=== PATIENT | female | born 1935 | race Caucasian/White ===

== ENCOUNTER → 2018-05-15 | Outpatient (CLI) | payer OTHER, MEDICARE ==
[~2018-05-15] MED LIST: ASPI81TA28 PO; CHOL1000 PO; HYDR-5688 PO; LEVO25CA2 PO; LISI-726 PO; METO25TA3 PO; PSYL0.524 PO
--- NOTE | 2018-05-15 16:04 | DIAGNOSTIC IMAGING REPORT ---
CHEST 2 VIEWS ROUTINE CLINICAL HISTORY: PAT preoperative evaluation COMPARISON STUDY: No previous studies for comparison. FINDINGS: The bones soft tissues and hemidiaphragms are normal. The cardiomediastinal silhouette is normal. The lungs are clear. The pulmonary vasculature is normal. IMPRESSION: Negative chest. The above report was generated using voice recognition software. It may contain grammatical, syntax or spelling errors. Electronically signed by: Jean Snell M.D. 05/15/2018 4:02 PM Dictated Date/Time: 05/15/2018 4:02 PM
[2018-05-15 16:10] LABS: BASO % 0.2 %; BASO ABS # 0.02 K/uL (0-0.2); EOS % 3.1 %; EOS ABS # 0.27 K/uL (0-0.5); HEMATOCRIT 35.8 % (37-47); HEMOGLOBIN 11.7 g/dL (12.0-16.0); IG# 0.02 K/uL (0.00-0.02); LYMPH % 41.2 %; LYMPH ABS # 3.63 K/uL (1.2-3.4); MEAN CORPUSCULAR HEMOGLOBIN 27.8 pg (25-34); MEAN CORPUSCULAR HGB CONC 32.7 g/dl (32-36); MEAN PLATELET VOLUME 8.8 fL (7.4-10.4); MONO % 7.3 %; MONO ABS # 0.64 K/uL (0.11-0.59); NEUT ABS # 4.23 K/uL (1.4-6.5); PLATELET COUNT 328 K/uL (130-400); RED CELL DISTRIBUTION WIDTH CV 14.2 % (11.5-14.5); RED CELL DISTRIBUTION WIDTH SD 44.2 fL (36.4-46.3); WHITE BLOOD COUNT 8.81 K/uL (4.8-10.8)
[2018-05-15 16:18] LABS: ALBUMIN 3.8 gm/dl (3.4-5.0); BLOOD UREA NITROGEN 18 mg/dl (7-18); CALCIUM 9.2 mg/dl (8.5-10.1); CARBON DIOXIDE 29 mmol/L (21-32); CREATININE 1.03 mg/dl (0.60-1.20); GLUCOSE 124 mg/dl (70-99); POTASSIUM 4.7 mmol/L (3.5-5.1); SODIUM 138 mmol/L (136-145)
[2018-05-16 06:18] LABS: HEMOGLOBIN A1C 5.8 % (4.5-5.6)
== END | disposition home or self-care (01) ==
LOC: C.CPL 14:37
DX: Z01.818 Encounter for other preprocedural examination (principal)

== ENCOUNTER → 2018-06-05 | Day surgery (SDC) | payer OTHER, MEDICARE ==
[2018-05-06 10:37] VITALS: BMI 28.0
[2018-05-15 14:35] VITALS: BMI 28.0
--- NOTE | 2018-05-15 15:20 | PAT Medication Instructions ---
Service Date May 15, 2018. Current Home Medication List Aspirin (Aspirin Ec), 81 MG PO DAILY PRN for PRN Cholecalciferol (Vitamin D3), 1 TAB PO Q2D Hydrocodone/Acetaminophen 5MG/325MG ([place] 5MG/325MG), 1 TABLET PO Q6 PRN for Pain Levothyroxine Sodium (Tirosint), 1 CAP PO QAM Lisinopril (Lisinopril), 20 MG PO HS Metoprolol Succ (Toprol Xl) (Toprol-Xl), 12.5 MG PO BID Psyllium (Metamucil), 1 DOSE PO QAM Medication Instructions For Your Scheduled Surgery - Hold the following medications the morning of surgery: Cholecalciferol (Vitamin D3), 1 TAB PO Q2D Psyllium (Metamucil), 1 DOSE PO QAM - Take the following medications the morning of surgery with a sip of water: Aspirin (Aspirin Ec), 81 MG PO DAILY PRN (if needed) Hydrocodone/Acetaminophen 5MG/325MG ([place] 5MG/325MG), 1 TABLET PO Q6 PRN for Pain (if needed, may be taken up to four hours before surgery) Levothyroxine Sodium (Tirosint), 1 CAP PO QAM Metoprolol Succ (Toprol Xl) (Toprol-Xl), 12.5 MG PO BID - Take the following medications as scheduled the night before surgery: Lisinopril (Lisinopril), 20 MG PO HS Metoprolol Succ (Toprol Xl) (Toprol-Xl), 12.5 MG PO BID If you have any questions please call us at [phone] or [phone] or [phone]
--- NOTE | 2018-06-04 12:21 | HISTORY & PHYSICAL EXAMINATION ---
DATE OF ADMISSION: 06/05/2018 CHIEF COMPLAINT: Left hip pain. HISTORY OF PRESENT ILLNESS: Mrs. Sy is an 83-year-old female with a multiple-year history of left hip pain. The patient rates her pain as 10/10. She has pain with her daily activities. She has limited standing and walking tolerance. Pain is worse with weightbearing. The patient uses a cane. She takes Aleve and hydrocodone with minimal relief. She has failed conservative treatment and is scheduled for left hip replacement. PAST MEDICAL HISTORY: Hypertension, hypercholesterolemia. She denies heart disease, diabetes or DVT. PAST SURGICAL HISTORY: Cataract extraction, hysterectomy and bladder sling. SOCIAL HISTORY: The patient denies alcohol or tobacco use. She lives in a single floor apartment. She lives alone and is retired. FAMILY HISTORY: Negative for DVT. MEDICATIONS: Tirosint 25 mcg, metoprolol 25 mg, lisinopril 20 mg, hydrocodone 5/325. ALLERGIES: None. REVIEW OF SYSTEMS: See HPI. Ten other systems reviewed, all negative. PHYSICAL EXAMINATION: VITAL SIGNS: Height 5 feet 4 inches, weight 170 pounds, BMI 29. GENERAL: This is a well-developed, well-nourished female, who is alert and oriented x3. Mood and affect are appropriate. HEENT: Normocephalic, atraumatic. Mucous membranes are moist and intact. NECK: Supple without lymphadenopathy. HEART: Regular rate and rhythm without murmurs, rubs or gallops. LUNGS: Clear to auscultation without wheezes or rhonchi. ABDOMEN: Soft and nontender. Bowel sounds are equal and active. EXTREMITIES: No ecchymosis, redness or warmth. Thigh and calf are soft and nontender. Log roll of the hip reproduces pain in the groin. Range of motion is decreased. She is neurovascularly intact with +5/5 strength. She walks with an antalgic gait. X-RAY EXAMINATION: AP and lateral views show joint space narrowing and osteophyte formation. IMPRESSION: Degenerative joint disease, left hip. PLAN: The patient will be admitted for a left total hip arthroplasty with Dr. Alba. We will plan on [facility] for home health upon discharge. She will have aspirin for DVT prophylaxis.
[~2018-06-05] VITALS: Ht 165.1 cm; Wt 77.4 kg
[~2018-06-05] MED LIST changes: +ACET-24 PO; +ACETAMINOPHEN 500 MG TAB PO SCH; +ATROPINE SULFATE 0.1 MG/ML 5ML SYR IV PRN; +BACITRACIN 50000 UNIT VIAL ONE; +BUPIVACAINE 0.25% 30 ML VIAL ONE; +BUPIVACAINE 0.5 % 5 MG/1 ML PF 10ML VIAL ONE; +CEFAZOLIN 1000MG IV PUSH 7.5 ML IV SCH; +CeleBREX 200 MG CAP PO SCH; +DEXAMETHASONE 4 MG TAB PO SCH; +DEXAMETHASONE SOD INJ 4 MG/ML VIAL ONE; +EpHEDrine SULFATE 50MG/5ML SYR ONE; +EpHEDrine SULFATE INJ 50 MG/ML AMP IV PRN; +FAMOTIDINE 20 MG TAB PO SCH; +FENTANYL CITRATE INJ 50 MCG/1 ML 2 ML VIAL IV PRN; +FENTANYL CITRATE INJ 50 MCG/1 ML 2 ML VIAL ONE; +FLUMAZENIL 0.1 MG/1 ML 10 ML VIAL IV PRN; +GABAPENTIN 300 MG CAP PO SCH; +HYDROmorphone INJ 2 MG/ML SYR/VIAL IV PRN; +LABETALOL HCL IV 5 MG/ML 20ML IV PRN; +LACTATED RINGER'S 1000ML 1,000 ML IV SCH; +LACTATED RINGER'S 1000ML 500 ML IV SCH; +LIDOCAINE HCL 2% 2 ML VIAL (20MG/ML) ONE; +MEPERIDINE HCL 25 MG/ML CARP IV PRN; +METOCLOPRAMIDE HCL 10 MG TAB PO SCH; +MIDAZOLAM HCL 1 MG/ML 2ML VIAL ONE; +NALOXONE HCL 0.4 MG/1 ML VIAL/CARP IV PRN; +ONDANSETRON INJ 2 MG/ML 2 ML VIAL IV PRN; +ONDANSETRON INJ 2 MG/ML 2 ML VIAL ONE; +ORTHO JOINT ANESTHETIC ONE; +OXYCODONE/ACETAMINOPHEN 5-325 TAB PO PRN; +PHENYLEPHRINE 100MCG/ML 5ML SYR IV PRN; +POVIDONE-IODINE OP SOLN 30 ML BTL ONE; +PROPOFOL IV EMULSION 10 MG/ML 20 ML VIAL ONE; +ROPIVACAINE 5MG/ML 30 ML 150 MG, BUPIVACAINE 0.5% MPF INJ 30 ML, EpINEphrine HCL INJ 0.... INFIL SCH; +RXC5 PO; +SODIUM CHLORIDE 0.9% 1000ML 1,000 ML IV SCH; +TRANEXAMIC ACID INJ 1,000 MG x 2 Bags IV SCH
[2018-06-05 05:56] VITALS: BP 169/94; PULSE 83; TEMP 36.8; O2SAT 100; Ht 165.1 cm; Wt 77.4 kg
--- NOTE | 2018-06-05 07:23 | History & Physical Bridge Note ---
H&P Re-Evaluation Bridge Note: I have examined the patient, reviewed the History & Physical and in the interval since the performance of the History & Physical I have noted the following changes of clinical significance: No changes notedPatient fractured left wrist last night. Total hip cancelled, plan closed reduction application external fixator left wrist today.
--- NOTE | 2018-06-05 10:47 | Discharge Instructions ---
Discharge Instructions Date of Service Jun 05, 2018. Visit Reason for Visit: Left wrist fracture Discharge Discharge Diagnosis / Problem: Left wrist fracture Discharge Goals Goal(s): Decrease discomfort, Improve function Activity Recommendations Activity Limitations: as noted below Anesthesia . Post Anesthesia Instructions: If you have had General Anesthesia or IV Sedation: * Do not drive today. * Resume driving when surgeon permits. * Do not make important decisions or sign legal documents today. * Call surgeon for: 1. Temperature elevations greater than 101 degrees F. 2. Uncontrollable pain. 3. Excessive bleeding. 4. Persistent nausea and vomiting. 5. Medication intolerance (nausea, vomiting or rash). * For nausea and vomiting use only clear liquids such as: tea, soda, bouillon until nausea subsides, then gradually increase diet as tolerated. * If you have any concerns or questions, call your surgeon's office. If physician is unavailable and it is an emergency, call 911 or go to the nearest emergency room. . Instructions / Follow-Up Instructions / Follow-Up Maintain dressing until follow-up with MD. Follow-up 06/09 for dressing change. Call [phone] for appointment. May move elbow and fingers as tolerated. Sling for comfort as needed. Frequent ice and elevation to the wrist. Diet Recommendations Recommended Home Diet: resume previous diet Procedures Procedures Performed: Left Wrist Closed Reduction, External Fixator Application Pending Studies Studies pending at discharge: no Medical Emergencies . Who to Call and When: Medical Emergencies: If at any time you feel your situation is an emergency, please call 911 immediately. . Non-Emergent Contact Non-Emergency issues call your: Surgeon Call Non-Emergent contact if: temperature is above 101.5, your pain is not controlled, wound has increased drainage, wound has increased redness . . "Provider Documentation" section prepared by Jose Vargas PA-C. . [facility] Drug Monitoring Program Search Results: patient reviewed within database, no issues identified
--- NOTE | 2018-06-05 10:49 | OPERATIVE REPORT ---
DATE OF OPERATION: 06/05/2018 PREOPERATIVE DIAGNOSIS: Comminuted distal radius fracture, left. POSTOPERATIVE DIAGNOSIS: Comminuted distal radius fracture, left. PROCEDURE: Close reduction, application of external fixator, left wrist. SURGEON: Evens Alba MD. QC SCIENTIST: Jose Vargas PA-C. Mr. Vargas was utilized in all portions of the case including reduction, external fixator application, and dressing application. ANESTHESIA: General. COMPLICATIONS: None. DESCRIPTION OF PROCEDURE: Patient's left arm was prepped and draped in the usual sterile manner. Limb was exsanguinated with elevation, and tourniquet was inflated to 225 mmHg. The base of the second metacarpal was palpated digitally, and a drill tip guidewire was placed in the appropriate position. Check x-ray revealed adequate pin placement. The distal metacarpal pin was then placed using the parallel aiming guide. The initial placement was a dorsal, second placement more volar was placed. Stable pin purchase was obtained. Next, K wires were placed in a parallel fashion in the distal radius proximal to the fracture. The external fixator was applied. A closed reduction of the wrist was carried out, and the fixator was tightened into position. A sterile dressing of Adaptic, 4x4s, Kerlix, and Librado bandage was applied. The patient tolerated the procedure well. I attest to the content of the Intraoperative Record and any orders documented therein. Any exception s are noted below.
--- NOTE | 2018-06-05 11:02 | Anesthesiology Progress Note ---
Anesthesia Post Op Note Date & Time Jun 05, 2018 at 11:02 Vital Signs Pain Intensity: 0 Vital Signs Past 12 Hours Date Time Temp Pulse Resp B/P (MAP) Pulse Ox O2 Delivery O2 Flow Rate FiO2 06/05/18 10:45 37.4 102 20 127/75 97 Oxymask 10 06/05/18 05:56 36.8 83 20 169/94 100 Room Air Notes Mental Status: alert / awake / arousable, participated in evaluation Pt Amnestic to Procedure: Yes Nausea / Vomiting: adequately controlled Pain: adequately controlled Airway Patency, RR, SpO2: stable & adequate BP & HR: stable & adequate Hydration State: stable & adequate Anesthetic Complications: no major complications apparent
[2018-06-05 12:10] VITALS: BP 139/78; PULSE 69; TEMP 36.6; O2SAT 97
--- NOTE | 2018-06-05 14:14 | DIAGNOSTIC IMAGING REPORT ---
L WRIST 2 VIEWS CLINICAL HISTORY: ORIF EX-FIX LT fracture COMPARISON: None. DISCUSSION: External fixator position with the proximal aspect in the distal radial shaft and the distal aspect within the second metacarpal. Comminuted fracture distal radius with extension to the articular services again noted. There is no evidence for soft tissue swelling. IMPRESSION: Findings consistent with next general fixator as discussed. Comminuted fracture distal radius extending to the articular services is noted. The above report was generated using voice recognition software. It may contain grammatical, syntax or spelling errors. Electronically signed by: Jean Snell M.D. 06/05/2018 2:12 PM Dictated Date/Time: 06/05/2018 2:11 PM
== END | disposition home or self-care (01) ==
LOC: C.ACU 05:37
DX: S52.592A Other fractures of lower end of left radius, initial encounter for closed fracture (principal); X58.XXXA Exposure to other specified factors, initial encounter; M16.12 Unilateral primary osteoarthritis, left hip; I10 Essential (primary) hypertension; E78.00 Pure hypercholesterolemia, unspecified

== ENCOUNTER 2018-10-30 06:35 | Inpatient (IN) ==
--- NOTE | 2018-10-22 08:51 | Anesthesiology Consultation ---
Date of Service October 22, 2018 Assessment & Plan (1) Encounter for pre-operative examination: Plan: Patient had labs done 08/29/18, just outside of 60-day window. Repeat CBCdiff, BMP AM DOS. Chart Review Chart Review: Acceptable Risk for Surgery and Patient NOT seen in Pre Admission Testing History Surgery Operation Date: 10/30/18 08:15 Proposed Procedures p Right Total Hip Arthroplasty - Evens Alba MD Height/Weight Height: 5 ft 3 in Weight: 74.843 kg Allergies Allergy/AdvReac Type Severity Reaction Status Date / Time No Known Allergies Allergy Verified 08/28/18 09:04 Medications Home Medications Medication Instructions Recorded Confirmed Last Taken cholecalciferol (vitamin D3) 2,000 unit PO QPM 07/28/18 09/30/18 08/27/18 15:00 [Vitamin D3] levothyroxine 25 mcg PO QAM 07/28/18 09/30/18 08/28/18 05:30 lisinopril 20 mg PO QPM 07/28/18 09/30/18 08/27/18 15:00 metoprolol succinate 12.5 mg PO QPM 07/28/18 09/30/18 08/27/18 15:00 psyllium husk [Metamucil] 1 tbsp PO QPM 07/28/18 09/30/18 08/27/18 21:00 oxycodone 5 mg PO Q4H PRN #30 tab 08/29/18 09/30/18 Unknown acetaminophen [Acetaminophen Extra 500 mg PO QID PRN 09/30/18 09/30/18 Unknown Strength] aspirin [Aspirin Low Dose] 81 mg PO BID 09/30/18 09/30/18 Unknown Past Medical History Medical History Hyperlipidemia Hypertension Hypothyroidism Osteoarthritis Past Family History Family History Daughter Family history of diabetes mellitus Past Surgical History Surgical History H/O excision of mass ABDOMEN BENIGN History of bilateral tubal ligation History of cataract surgery R/L History of hysterectomy BSO History of open reduction and internal fixation (ORIF) procedure LEFT WRIST CLOSED REDUCTION, EX FIX= 06/05/18= LMA#4 AT [facility] History of total hip arthroplasty LEFT Past Anesthesia History LEFT CECE 08/28/18: SAB x 1 ATTEMPT, NO ISSUES PER RECORD. Social History Smoking Status: Never smoker Do You Dip or Chew Tobacco: No Hx Alcohol Use: Yes Alcohol type: wine alcohol intake frequency: a few times a month Hx Substance Use: No substance use type: does not use Testing Electrocardiogram Date: 08/20/18 Findings: + NSR @ (67) Chest X-Ray Date: 05/15/18 Findings: + NAD
--- NOTE | 2018-10-29 12:40 | History and Physical Report ---
DATE OF ADMISSION: 10/30/2018 CHIEF COMPLAINT: Right hip pain. HISTORY OF PRESENT ILLNESS: The patient is an 83-year-old female approximately 2 months status post successful left total hip arthroplasty. She also has known severe osteoarthritis about the right hip and now desires to proceed with right total hip arthroplasty as well. PAST MEDICAL HISTORY: Hypertension, osteoarthritis, hypothyroidism. PAST SURGICAL HISTORY: Left hip as above. MEDICATIONS: Tirosint 25 mcg daily, metoprolol succinate ER 25 mg 2 times daily, lisinopril 20 mg daily. ALLERGIES: No known drug allergies. SOCIAL HISTORY AND REVIEW OF SYSTEMS: Noncontributory. PHYSICAL EXAMINATION: GENERAL: Well-nourished, well-developed female who appears her stated age. HEENT: Normocephalic, atraumatic, extraocular movements intact, oropharynx pink and moist. NECK: Supple without adenopathy. LUNGS: Clear to auscultation bilaterally. HEART: Regular rate and rhythm. ABDOMEN: Soft, nontender, nondistended. EXTREMITIES: The upper extremities are within normal limits. The right hip demonstrates limited range of motion. There is limitation of active and passive internal/external rotation with pain at end range. X-RAYS: X-rays were reviewed. She has a well-aligned, well-fixed total hip on the left. The right hip demonstrates severe osteoarthritis about the right hip with complete loss of the joint space. There is flattening and deformation of the femoral head. There are large osteophytes about the femoral head and acetabulum. ASSESSMENT: Right hip degenerative joint disease. PLAN: Risks versus benefits were discussed, consent was obtained. The patient's primary care physician is Dr. Devries. We will proceed with right total hip arthroplasty as indicated.
[~2018-10-30 06:35] MED LIST changes: -ACET-24 PO; -ASPI81TA28 PO; -ATROPINE SULFATE 0.1 MG/ML 5ML SYR IV PRN; -BACITRACIN 50000 UNIT VIAL ONE; -BUPIVACAINE 0.25% 30 ML VIAL ONE; +CEFAZOLIN 1000MG 1,000 MG/7.5 ML SYR IV SCH; -CEFAZOLIN 1000MG IV PUSH 7.5 ML IV SCH; -CHOL1000 PO; -DEXAMETHASONE 4 MG TAB PO SCH; -DEXAMETHASONE SOD INJ 4 MG/ML VIAL ONE; -EpHEDrine SULFATE 50MG/5ML SYR ONE; -EpHEDrine SULFATE INJ 50 MG/ML AMP IV PRN; -FENTANYL CITRATE INJ 50 MCG/1 ML 2 ML VIAL IV PRN; -FENTANYL CITRATE INJ 50 MCG/1 ML 2 ML VIAL ONE; -FLUMAZENIL 0.1 MG/1 ML 10 ML VIAL IV PRN; -GABAPENTIN 300 MG CAP PO SCH; +GABAPENTIN 300 MG PO SCH; -HYDR-5688 PO; -HYDROmorphone INJ 2 MG/ML SYR/VIAL IV PRN; -LABETALOL HCL IV 5 MG/ML 20ML IV PRN; -LACTATED RINGER'S 1000ML 1,000 ML IV SCH; -LACTATED RINGER'S 1000ML 500 ML IV SCH; -LEVO25CA2 PO; -LIDOCAINE HCL 2% 2 ML VIAL (20MG/ML) ONE; -LISI-726 PO; -MEPERIDINE HCL 25 MG/ML CARP IV PRN; -METO25TA3 PO; -METOCLOPRAMIDE HCL 10 MG TAB PO SCH; +METOCLOPRAMIDE HCL 10 MG TABLET PO SCH; -MIDAZOLAM HCL 1 MG/ML 2ML VIAL ONE; -NALOXONE HCL 0.4 MG/1 ML VIAL/CARP IV PRN; -ONDANSETRON INJ 2 MG/ML 2 ML VIAL IV PRN; -ONDANSETRON INJ 2 MG/ML 2 ML VIAL ONE; -ORTHO JOINT ANESTHETIC ONE; -OXYCODONE/ACETAMINOPHEN 5-325 TAB PO PRN; -PHENYLEPHRINE 100MCG/ML 5ML SYR IV PRN; -POVIDONE-IODINE OP SOLN 30 ML BTL ONE; -PROPOFOL IV EMULSION 10 MG/ML 20 ML VIAL ONE; -PSYL0.524 PO; +ROPIVACAINE 0.5% HCL/PF 150 MG, BUPIVACAINE 0.5% MPF 30 ML, EPINEPHrine 30MG/30ML (OR U... INFIL SCH; -ROPIVACAINE 5MG/ML 30 ML 150 MG, BUPIVACAINE 0.5% MPF INJ 30 ML, EpINEphrine HCL INJ 0.... INFIL SCH; -RXC5 PO; -SODIUM CHLORIDE 0.9% 1000ML 1,000 ML IV SCH; +TRANEXAMIC ACID 1,000 MG **IV Intra-op IV SCH; +TRANEXAMIC ACID 1,000 MG **IV Pre-op IV SCH; -TRANEXAMIC ACID INJ 1,000 MG x 2 Bags IV SCH; +dexAMETHasone 4 MG TAB PO SCH
[2018-10-30] MEDS: LR 500ML BOLUS, THEN 15ML/HR IV SCH ×3 (07:20→10:57)
[2018-10-30 07:36] LABS: Basophils # (auto) 0.04 K/uL (0-0.2); Basophils % (auto) 0.4 %; Eosinophils # (auto) 0.38 K/uL (0-0.5); Eosinophils % (auto) 3.9 %; Hematocrit (blood only) 33.1 % (37-47); Hemoglobin 10.5 g/dL (12.0-16.0); Immature Granulocytes # (auto) 0.03 K/uL (0.00-0.02); Immature Granulocytes % (auto) 0.3 %; Lymphocytes # (auto) 2.79 K/uL (1.2-3.4); Lymphocytes % (auto) 28.7 %; Mean Corpuscular Volume 83.4 fL (80-100); Mean Platelet Volume 8.4 fL (7.4-10.4); Monocytes # (auto) 0.75 K/uL (0.11-0.59); Monocytes % (auto) 7.7 %; Neutrophils # (auto) 5.73 K/uL (1.4-6.5); Platelet Count 362 K/uL (130-400); RDW Coefficient of Variation 15.1 % (11.5-14.5); RDW Standard Deviation 46.7 fL (36.4-46.3); Red Blood Count 3.97 M/uL (4.2-5.4); White Blood Count 9.72 K/uL (4.8-10.8)
[2018-10-30 07:37] LABS: Mean Corpuscular Hgb Conc 31.7 g/dL (32-36)
[2018-10-30] MEDS ORDERED: ORTHO JOINT ANESTHETIC ONE (07:47)
[2018-10-30] MEDS ORDERED: ETOMIDATE 2 MG/ML 20 ML VIAL IV ONE (07:47)
[2018-10-30] MEDS ORDERED: POVIDONE-IODINE OP SOLN 30 ML BTL ONE (07:47)
[2018-10-30] MEDS ORDERED: fentaNYL citrate 100 MCG/2 ML VIAL ONE (07:47)
[2018-10-30] MEDS ORDERED: BACITRACIN INJ 50,000 UNIT VIAL ONE (07:47)
[2018-10-30] MEDS ORDERED: MIDAZOLAM HCL 1 MG/ML 2ML VIAL ONE (07:47)
[2018-10-30] MEDS ORDERED: PROPOFOL IV EMULSION 10 MG/ML 20 ML VIAL IV ONE (07:48)
[2018-10-30] MEDS ORDERED: LIDOCAINE HCL 2% 2 ML VIAL/AMP(20MG/ML) INFIL ONE (07:48)
[2018-10-30 07:52] LABS: BUN Creatinine Ratio 18.1 (10-20); Calcium 9.3 mg/dl (8.5-10.1); Creatinine Clr Calc Pharmacy 46.1 ml/min; Est GFR (African American) 66.8; Est GFR (Non-African American) 57.6; Potassium 4.2 mmol/L (3.5-5.1)
[2018-10-30] MEDS ORDERED: ATROPINE SULFATE 0.1 MG/ML 5ML SYR IV PRN (07:55)
[2018-10-30] MEDS ORDERED: ONDANSETRON INJ 2 MG/ML 2 ML VIAL IV PRN ×2 (07:55→10:50)
[2018-10-30] MEDS ORDERED: MEPERIDINE HCL 25 MG/ML CARP IV PRN (07:55)
[2018-10-30] MEDS ORDERED: ePHEDrine sulfate 50 MG/ML AMP IV PRN (07:55)
[2018-10-30] MEDS ORDERED: PHENYLEPHRINE 100MCG/ML 5ML SYR IV PRN (07:55)
[2018-10-30] MEDS ORDERED: fentaNYL citrate 100 MCG/2 ML VIAL IV PRN (07:55)
[2018-10-30] MEDS ORDERED: LABETALOL HCL IV 5 MG/ML 20ML IV PRN (07:55)
--- NOTE | 2018-10-30 08:13 | History & Physical Bridge Note ---
Date of Service October 30, 2018 History & Physical Bridge Note I have examined the patient, reviewed the History & Physical and in the interval since the performance of the History & Physical I have noted the following changes of clinical significance: no changes noted
--- NOTE | 2018-10-30 09:04 | Operative Report ---
Post Operative Report Date of Surgery October 30, 2018 Pre & Post Diagnosis Operation Date: 10/30/18 08:15 Pre-Op Diagnosis: Right Hip Osteoarthritis Post-Op Diagnosis: Right Hip Osteoarthritis Procedure Operation Date: 10/30/18 08:15 Actual Procedures p Right Total Hip Arthroplasty(Right) - Evens Alba MD Surgeon Evens Alba MD [facility] kailyn Estimated Blood Loss 75 Findings Consistent with Post-Op Diagnosis Specimens femoral head Complications none Disposition Accompanied Patient To Recovery: No Disposition: Recovery Room Indications Hip pain Description of Procedure Patient was placed in left lateral decubitus position and the right hip was prepped and draped in the usual sterile manner. A [place] along the back incision was made subcutaneous tissue was sharply dissected electrocautery was used for hemostasis. Fascia was incised throughout the length wound and the short external rotators were divided from the posterior aspect of the femur using electrocautery. #1 Vicryl was utilized to tack the piriformis. A T capsulotomy incision was made using electrocautery gross effusion was noted and the hip was dislocated using a combination of flexion abduction and internal rotation. The femoral head was presented into the wound and the femoral neck was osteotomized at the appropriate level of care being taken to carefully match the cut length with the contralateral side. The femoral neck and head were removed. Next retractors were placed and sequential reamings were carried up to a 56 mm care was taken to appropriately medialized the acetabulum. The acetabular component was impacted into position. Set acetabulum was held in position use the elevated posterior wall liner was placed. The acetabular shell was fixed using a single 30 mm cancellous screw. Next attention was turned to the femur where a box osteotome was used to gain access to the femoral canal. A T-handled canal finder was utilized as well as a lateralizing liter and sequential reamings were taken up to a size 4 rasp. -25 neck again chosen the final stem and head were impacted in position. The hip was relocated and was found to be exceptionally stable the wound was irrigated with pulsatile irrigation periarticular joint mix was injected piriformis was repaired to the greater trochanter using #1 Vicryl. Hemovac drain was placed Betadine soap was utilized fascia was closed using #1 Vicryl subcutaneous is closed using 0 Dexon skin was closed with is applied. Sterile dressing of Adaptic 4 x 4's ABDs and foam tape was applied. Patient tolerated the procedure well. Mr. Perales was used through all portions of the case including positioning prepping draping surgical assistance in wound closure and dressing application. I attest to the content of the Intraoperative Record and any orders documented therein. Any exceptions are noted below.
--- NOTE | 2018-10-30 10:19 | Anesthesiology Progress Note ---
Date of Service October 30, 2018 Anesthesia Post Procedure Vital Signs Vital Signs: Temp Pulse Pulse Resp BP BP Pulse Ox 10/30/18 10:15 80 17 112/64 95 10/30/18 10:05 74 14 101/67 97 10/30/18 09:55 77 14 104/68 96 10/30/18 09:45 69 17 109/44 L 97 10/30/18 09:35 77 15 100/48 L 97 10/30/18 09:27 36.2 C L 99 H 16 104/51 L 95 10/30/18 06:55 36.5 C 78 20 189/84 H 100 Notes Mental Status: alert / awake / arousable Patient Amnestic to Procedure: Yes Nausea / Vomiting: adequately controlled Pain: adequately controlled Airway Patency, RR, SpO2: stable & adequate BP & HR: stable & adequate Hydration State: stable & adequate Neuraxial Anesthesia: was administered and sensory block is resolving Anesthetic Complications: no major complications apparent and Pt Satisfied with anesthetic care
--- NOTE | 2018-10-30 10:22 | XRay Report ---
SINGLE VIEW PELVIS; SINGLE VIEW RIGHT HIP CLINICAL HISTORY: Postoperative examination. FINDINGS: An AP portable view of the hips and pelvis with a crosstable lateral portable view of the r ight hip are obtained. Comparison is made to study dated 08/28/2018. A bipolar right hip arthroplasty is in near-anatomic alignment. A single cortical lag screw transfixes the acetabular cup. No acute fr acture is identified. There are expected postoperative changes overlying the right hip including subc utaneous gas, a surgical drain, and soft tissue swelling. A left hip arthroplasty is again noted. The re are numerous pelvic phleboliths. IMPRESSION: Expected postoperative findings status post right hip arthroplasty. No acute fracture is seen. Electronically signed by: Zev Drew M.D. 10/30/2018 10:20 AM
[2018-10-30] MEDS ORDERED: MoRPHine SULFATE 2 MG/ML CARP IV PRN (10:50)
[2018-10-30] MEDS ORDERED: MAGNESIUM HYDROXIDE SUSP 30 ML UDC PO PRN (10:50)
[2018-10-30] MEDS ORDERED: METOCLOPRAMIDE HCL INJ 5 MG/ML 2 ML VIAL IV PRN (10:50)
[2018-10-30] MEDS ORDERED: ZOLPIDEM TARTRATE 5 MG TAB PO PRN (10:50)
[2018-10-30] MEDS ORDERED: ALUMINUM/MAGNESIUM SUSP 30 ML UDC PO PRN (10:50)
[2018-10-30] MEDS ORDERED: ePHEDrine sulfate 50 MG/ML SYR ONE (10:59)
[2018-10-30] MEDS ORDERED: PHENYLEPHRINE 100MCG/ML 5ML SYR ONE (10:59)
[2018-10-30] MEDS: ACETAMINOPHEN 500 MG TAB PO SCH ×2 (13:22→21:33)
[2018-10-30] MEDS: D5W AND 1/2NSS + 20MEQ KCL 20 MEQ/1,000 ML BAG IV SCH ×2 (13:22→23:11)
[2018-10-30] MEDS: FERROUS GLUCONATE 324 MG TAB PO SCH ×2 (13:22→16:47)
[2018-10-30] MEDS: KETOROLAC TROMETHAMINE 15 MG/ML VIAL IV SCH ×3 (13:24→23:11)
[2018-10-30] MEDS: CEFAZOLIN 1000MG 1,000 MG/7.5 ML SYR IV SCH ×2 (16:46→23:11)
[2018-10-30] MEDS: OXYCODONE HCL IR 5 MG TAB (IMMEDIATE RELEASE) PO PRN ×2 (17:42→23:14)
[2018-10-30] MEDS: DOCUSATE SODIUM 100 MG CAP PO SCH (20:36)
[2018-10-30] MEDS: METOPROLOL SUCC 25MG EXT REL TAB PO SCH (20:36)
[2018-10-30] MEDS: LISINOPRIL 20 MG TAB PO SCH (20:36)
[2018-10-30] MEDS: ASPIRIN 81 MG ECTAB PO SCH (20:36)
[2018-10-30] MEDS: CHOLECALCIFEROL 1,000 UNITS TAB PO SCH (20:36)
[2018-10-31] MEDS: KETOROLAC TROMETHAMINE 15 MG/ML VIAL IV SCH (05:42)
[2018-10-31] MEDS: LEVOTHYROXINE SODIUM 25 MCG TABLET PO SCH (05:42)
[2018-10-31 05:57] LABS: Hematocrit (blood only) 24.9 % (37-47); Immature Granulocytes # (auto) 0.04 K/uL (0.00-0.02); Immature Granulocytes % (auto) 0.4 %; Lymphocytes # (auto) 1.73 K/uL (1.2-3.4); Lymphocytes % (auto) 15.9 %; Mean Corpuscular Hgb Conc 32.1 g/dL (32-36); Mean Corpuscular Volume 81.6 fL (80-100); Mean Platelet Volume 8.2 fL (7.4-10.4); Monocytes # (auto) 0.99 K/uL (0.11-0.59); Monocytes % (auto) 9.1 %; Neutrophils # (auto) 8.14 K/uL (1.4-6.5); Neutrophils % (auto) 74.6 %; Platelet Count 281 K/uL (130-400); RDW Standard Deviation 44.9 fL (36.4-46.3); Red Blood Count 3.05 M/uL (4.2-5.4)
[2018-10-31 06:21] LABS: Ovalocytes 1+
[2018-10-31 06:30] LABS: Albumin Level 2.7 gm/dl (3.4-5.0); BUN Creatinine Ratio 17.1 (10-20); Calcium 8.4 mg/dl (8.5-10.1); Creatinine Clr Calc Pharmacy 35.5 ml/min; Est GFR (African American) 48.6; Est GFR (Non-African American) 41.9; Phosphorus 3.4 mg/dl (2.5-4.9); Potassium 4.6 mmol/L (3.5-5.1)
[2018-10-31] MEDS ORDERED: dexAMETHasone 10 MG in SYRINGE 0 ML IV SCH (08:00)
[2018-10-31] MEDS: ACETAMINOPHEN 500 MG TAB PO SCH ×3 (08:03→21:00)
[2018-10-31] MEDS: DOCUSATE SODIUM 100 MG CAP PO SCH ×2 (08:50→20:58)
[2018-10-31] MEDS: FERROUS GLUCONATE 324 MG TAB PO SCH ×3 (08:50→17:20)
[2018-10-31] MEDS: ASPIRIN 81 MG ECTAB PO SCH ×2 (08:50→21:00)
[2018-10-31] MEDS: MULTIVITAMIN TAB PO SCH (08:51)
[2018-10-31] MEDS: PANTOprazole 40 MG TAB PO SCH (08:51)
[2018-10-31] MEDS: OXYCODONE HCL IR 5 MG TAB (IMMEDIATE RELEASE) PO PRN ×3 (08:54→18:53)
--- NOTE | 2018-10-31 10:14 | Progress Note ---
DATE: 10/31/2018 SUBJECTIVE: The patient is postoperative day #1, status post right total hip arthroplasty. She is currently sitting up in her chair, eating breakfast and has no complaints. She is comfortable and pain is controlled. She states that she feels well and denies shortness of breath, chest pain, lightheadedness. OBJECTIVE: The patient's right hip dressing is clean, dry and intact. Thigh is soft and mildly swollen. Calves were soft, nontender. Neurovascular was intact. Toes were mobile. ASSESSMENT: 1. Postop day #1 status post right total hip arthroplasty. 2. Acute blood loss anemia, most likely secondary from surgical loss and possible dilutional effect. The patient's hemoglobin in the morning of 10/30/2018 was 10.5. Blood chemistries show a mild bump in her creatinine to 1.21. PLAN: PT and OT protocols per today. Continue DVT prophylaxis with aspirin, SCDs and JUAN hose. She is not on any other anti-inflammatories at this time and likely increase of her creatinine was due to dehydration and also lisinopril. We will continue gentle hydration for today with discontinue of her fluids later this evening and we will repeat her H and H this evening to make sure she is not falling any lower. Continue pain management and plan for discharge to home possibly Saturday if she has continued to do well and her laboratory values are in order. ALANA
--- NOTE | 2018-10-31 10:23 | Anesthesiology Progress Note ---
Date of Service October 31, 2018 Anesthesia Post Procedure Vital Signs Vital Signs: Temp Pulse Pulse Resp BP BP Pulse Ox 10/31/18 08:25 37 C 70 14 130/82 98 10/31/18 04:13 36.5 C 63 15 116/64 97 10/30/18 23:05 36.7 C 70 15 137/74 97 10/30/18 20:30 65 135/82 10/30/18 18:56 36.8 C 68 20 124/77 97 10/30/18 15:03 36.7 C 73 20 129/77 96 10/30/18 13:29 70 14 144/79 H 96 10/30/18 12:40 67 16 124/79 97 10/30/18 11:40 65 12 122/67 96 10/30/18 11:08 66 16 129/72 100 10/30/18 10:41 36.5 C 101 H 16 108/71 91 10/30/18 10:40 36.5 C 101 H 16 108/71 91 10/30/18 10:25 74 16 97/65 L 99 Notes Mental Status: alert / awake / arousable and participated in evaluation Patient Amnestic to Procedure: Yes Nausea / Vomiting: adequately controlled Pain: adequately controlled Airway Patency, RR, SpO2: stable & adequate BP & HR: stable & adequate Hydration State: stable & adequate Neuraxial Anesthesia: was administered and sensory block resolved Anesthetic Complications: no major complications apparent and Pt Satisfied with anesthetic care
[2018-10-31] MEDS: D5W AND 1/2NSS + 20MEQ KCL 20 MEQ/1,000 ML BAG IV SCH (11:12)
[2018-10-31] MEDS ORDERED: SODIUM CHLORIDE 0.9% 1000ML 1,000 ML IV SCH (12:30)
[2018-10-31] MEDS: METOPROLOL SUCC 25MG EXT REL TAB PO SCH (20:59)
[2018-10-31] MEDS: LISINOPRIL 20 MG TAB PO SCH (20:59)
[2018-10-31] MEDS: CHOLECALCIFEROL 1,000 UNITS TAB PO SCH (21:01)
[2018-11-01] MEDS ORDERED: Nursing to Pharmacy Communication ONE (00:28)
[2018-11-01] MEDS: OXYCODONE HCL IR 5 MG TAB (IMMEDIATE RELEASE) PO PRN ×3 (00:46→11:35)
[2018-11-01] MEDS: LEVOTHYROXINE SODIUM 25 MCG TABLET PO SCH (05:29)
[2018-11-01] MEDS: ACETAMINOPHEN 500 MG TAB PO SCH (05:30)
--- NOTE | 2018-11-01 08:02 | Orthopedic Progress Note ---
Date of Service November 01, 2018 Assessment & Plan (1) Status post total hip replacement, right: Continue PT/OT today Continue DVT Prophylaxis - ASA,SCD's,JUAN's Pain management Labs pending Pt feels she does not need HH services due to just fininshing her PT protocols from her last hip replacement. She knows her hip precautions and exercises and feels she can do these at home with her family. She is very motivated. Plan for dc to home today pending lab results. Patient seen and examined agree with above assessment and plan. Subjective POD 2 s/p Right CECE Pt lying in bed awake and alert. No complaints this AM. Comfortable. Denies SOB , CP, LH. Repeat Hgb yesterday was 9.3. BMP/CBC drawn this AM and pending. Physical Exam 2 Vital Signs (Past 24 Hours): Last Vital Signs Temp 36.4 C L 10/31/18 23:20 Pulse 70 10/31/18 23:20 Resp 18 10/31/18 23:20 BP 162/78 H 10/31/18 23:20 Pulse Ox 99 10/31/18 23:20 Physical Exam: [place] intact with some drainage noted in window. Thigh soft, NT. Calves soft, NT. NV intact. Good DF/PF of the operative foot. Hip located
[2018-11-01 08:27] LABS: BUN Creatinine Ratio 24.7 (10-20); Calcium 8.4 mg/dl (8.5-10.1); Creatinine Clr Calc Pharmacy 40.1 ml/min; Est GFR (African American) 56.4; Est GFR (Non-African American) 48.6; Potassium 4.1 mmol/L (3.5-5.1)
[2018-11-01] MEDS: FERROUS GLUCONATE 324 MG TAB PO SCH (08:38)
[2018-11-01] MEDS: DOCUSATE SODIUM 100 MG CAP PO SCH (08:39)
[2018-11-01] MEDS: MULTIVITAMIN TAB PO SCH (08:39)
[2018-11-01] MEDS: ASPIRIN 81 MG ECTAB PO SCH (08:39)
[2018-11-01] MEDS: PANTOprazole 40 MG TAB PO SCH (08:39)
--- NOTE | 2018-11-05 09:38 | Discharge Summary ---
CHIEF COMPLAINT: Right hip pain. Please see complete history and physical examination. HOSPITAL COURSE: The patient underwent right total hip arthroplasty without complication. She tolerated the procedure well and was discharged to the recovery room in stable condition. Her postop course was relatively uneventful. Her postoperative pain was reasonably well controlled with a combination of spinal anesthesia, intraoperative joint injection, IV, and oral pain medications. She was started on aspirin for DVT prophylaxis. She also utilized JUAN stockings and SCDs for additional prophylaxis. She did have a low H&H of 8.0 and 24.9, but her hemoglobin the next day was 9.3. Her surgical dressing and drain were discontinued on postoperative day #2. New surgical dressing was applied which will remain in place for approximately 7 days postoperative. She tolerated postoperative physical therapy reasonably well. She was ambulating and transferring appropriately. She was observing all total hip precautions. She was discharged home on postoperative day 2. She will continue her physical therapy on her own at home without services. She will continue her aspirin for DVT prophylaxis and follow up in our office in approximately 10-14 days for her initial postop evaluation.
== END 2018-11-01 11:58 | disposition home or self-care (01) | DRG 470 ==
LOC: ASU 06:35 → 3E 09:33